=== PATIENT | female | born 1955 | race Caucasian/White ===

== ENCOUNTER 2016-10-07 08:39 | Emergency (ER) | payer MEDICARE ==
[~2016-10-07 08:39] MED LIST: CELEXA20 MG PO; KLONOPIN TAB 00.5 MG PO; LIPITOR TAB 2020 MG PO; LOPRESSOR 25 MG25 MG PO; PREDNISONE 10 M10 MG PO; TYLENOL 325MG325 MG PO
[2016-10-07 09:51] LABS: HEMOGLOBIN 15.7 gm/dl (12.3-15.3); RED BLOOD COUNT 4.97 M/UL (4.00-5.10)
[2016-10-07 10:10] LABS: BUN/CREATININE RATIO 10 (0-10)
== END 2016-10-07 11:55 | disposition home or self-care (01) ==
LOC: ER1 08:39
PROVIDERS: Emergency Medicine
DX: J44.0 Chronic obstructive pulmonary disease with (acute) lower respiratory infection (principal); J20.9 Acute bronchitis, unspecified; J44.1 Chronic obstructive pulmonary disease with (acute) exacerbation; F41.9 Anxiety disorder, unspecified; F17.200 Nicotine dependence, unspecified, uncomplicated; Z90.49 Acquired absence of other specified parts of digestive tract; Z99.81 Dependence on supplemental oxygen
CPT/HCPCS: 36415; 36600; 71010; 80053; 82803; 84484; 85025; 87040; 93005; 94640; 94664; 96374; 96375; 96376; 99285; J2060; J2930

== ENCOUNTER 2016-10-16 03:55 | Emergency (ER) | payer MEDICARE ==
[2016-10-16 04:59] LABS: HEMOGLOBIN 14.7 gm/dl (12.3-15.3); RED BLOOD COUNT 4.69 M/UL (4.00-5.10)
[2016-10-16 05:22] LABS: BUN/CREATININE RATIO 8 (0-10)
== END 2016-10-16 11:44 | disposition home or self-care (01) ==
LOC: ER1 03:55
PROVIDERS: Physician Assistant
DX: F41.0 Panic disorder [episodic paroxysmal anxiety] (principal); J44.9 Chronic obstructive pulmonary disease, unspecified; F17.210 Nicotine dependence, cigarettes, uncomplicated; Z88.0 Allergy status to penicillin; Z88.8 Allergy status to other drugs, medicaments and biological substances; Z91.041 Radiographic dye allergy status; Z90.49 Acquired absence of other specified parts of digestive tract
CPT/HCPCS: 36415; 71010; 80053; 82550; 82553; 83874; 84484; 85025; 87081; 87880; 93005; 94664; 96374; 96375; 99284; J2060; J2930

== ENCOUNTER 2016-11-22 20:33 | Emergency (ER) | payer MEDICARE | END 2016-11-23 00:08 | disposition home or self-care (01) | LOC: ER1 20:33 | DX: J44.1 Chronic obstructive pulmonary disease with (acute) exacerbation (principal); F17.200 Nicotine dependence, unspecified, uncomplicated; Z88.0 Allergy status to penicillin | CPT/HCPCS: 93005; 96372; 99284; J2060 ==

== ENCOUNTER 2016-11-26 22:40 | Emergency (ER) | payer MEDICARE | END 2016-11-27 00:30 | disposition left against medical advice (07) | LOC: ER1 22:40 | DX: Z53.21 Procedure and treatment not carried out due to patient leaving prior to being seen by health care provider (principal) | CPT/HCPCS: 93005 ==

== ENCOUNTER 2016-12-03 01:06 | Emergency (ER) | payer MEDICARE ==
[2016-12-03 03:46] LABS: HEMOGLOBIN 15.9 gm/dl (12.3-15.3); RED BLOOD COUNT 5.04 M/UL (4.00-5.10); WHITE BLOOD COUNT 9.2 K/UL (4.5-11.0)
[2016-12-03 04:07] LABS: BUN/CREATININE RATIO 21 (0-10)
== END 2016-12-03 06:50 | disposition home or self-care (01) ==
LOC: ER1 01:06
PROVIDERS: Physician Assistant
DX: J44.1 Chronic obstructive pulmonary disease with (acute) exacerbation (principal); F41.1 Generalized anxiety disorder; F17.210 Nicotine dependence, cigarettes, uncomplicated; Z88.0 Allergy status to penicillin; Z88.8 Allergy status to other drugs, medicaments and biological substances; Z90.49 Acquired absence of other specified parts of digestive tract; Z99.81 Dependence on supplemental oxygen
CPT/HCPCS: 36415; 71010; 80053; 82550; 82553; 83874; 84484; 85025; 93005; 96374; 96375; 99285; J2060; J2930

== ENCOUNTER 2016-12-03 16:12 | Inpatient (IN) | payer MEDICARE ==
[~2016-12-03] VITALS: Ht 160 cm; Wt 73.5 kg
[2016-12-03 17:16] LABS: HEMOGLOBIN 15.6 gm/dl (12.3-15.3); RED BLOOD COUNT 4.96 M/UL (4.00-5.10); WHITE BLOOD COUNT 7.4 K/UL (4.5-11.0)
[2016-12-03 18:18] LABS: BUN/CREATININE RATIO 21 (0-10)
[2016-12-04 07:32] LABS: BUN/CREATININE RATIO 25 (0-10)
[2016-12-04 08:08] LABS: HEMOGLOBIN 13.3 gm/dl (12.3-15.3); RED BLOOD COUNT 4.27 M/UL (4.00-5.10); WHITE BLOOD COUNT 11.1 K/UL (4.5-11.0)
[2016-12-08] MEDS ORDERED: SYMBICORT 16010.2 GM INH (10:11)
[2016-12-08] MEDS ORDERED: ATROVENT INH S2.5 ML INH (10:14)
[2016-12-08] MEDS ORDERED: PREDNISONE10 MG PO (10:15)
== END 2016-12-08 15:38 | disposition home or self-care (01) | DRG 189 ==
LOC: ER1 16:12 → ZEROF 20:45 → MED SURG 4 20:45
PROVIDERS: Emergency Medicine; ADMIT Internal Medicine
DX: J96.21 Acute and chronic respiratory failure with hypoxia (principal); J44.1 Chronic obstructive pulmonary disease with (acute) exacerbation; F17.210 Nicotine dependence, cigarettes, uncomplicated; F41.9 Anxiety disorder, unspecified; F32.9 Major depressive disorder, single episode, unspecified; Z91.14 Patient's other noncompliance with medication regimen; Z88.8 Allergy status to other drugs, medicaments and biological substances; Z88.0 Allergy status to penicillin; Z79.899 Other long term (current) drug therapy; G89.28 Other chronic postprocedural pain
CPT/HCPCS: 36415; 71010; 80048; 80053; 82550; 82553; 82803; 83735; 83874; 84443; 84484; 85025; 85379; 87040; 87070; 87205; 93005; 94640; 94664; 96374; 96375; 99285; J1956; J2060; J2550; J2920; J2930; J7050

== ENCOUNTER 2016-12-10 05:45 | Emergency (ER) | payer MEDICARE ==
[~2016-12-10 05:45] MED LIST changes: +ATROVENT INH S2.5 ML INH; +PREDNISONE10 MG PO; +SYMBICORT 16010.2 GM INH
[2016-12-10 06:55] LABS: RED BLOOD COUNT 5.23 M/UL (4.00-5.10); WHITE BLOOD COUNT 9.4 K/UL (4.5-11.0)
[2016-12-10 07:04] LABS: HEMOGLOBIN 16.1 gm/dl (12.3-15.3)
[2016-12-10 08:20] LABS: BUN/CREATININE RATIO 27 (0-10)
== END 2016-12-10 09:15 | disposition home or self-care (01) ==
LOC: ER1 05:45
PROVIDERS: Family Medicine
DX: J44.9 Chronic obstructive pulmonary disease, unspecified (principal); R11.0 Nausea; F17.200 Nicotine dependence, unspecified, uncomplicated; Z88.0 Allergy status to penicillin; Z88.8 Allergy status to other drugs, medicaments and biological substances
CPT/HCPCS: 36415; 71010; 80053; 82550; 82553; 82803; 83874; 84484; 85025; 93005; 96361; 96374; 96375; 99285; J2060; J2405; J2930

== ENCOUNTER 2016-12-11 17:45 | Emergency (ER) | payer MEDICARE ==
[2016-12-11 19:10] LABS: HEMOGLOBIN 13.7 gm/dl (12.3-15.3); RED BLOOD COUNT 4.38 M/UL (4.00-5.10); WHITE BLOOD COUNT 13.5 K/UL (4.5-11.0)
== END 2016-12-11 22:34 | disposition left against medical advice (07) ==
LOC: ER1 17:45
PROVIDERS: Physician Assistant
DX: J44.1 Chronic obstructive pulmonary disease with (acute) exacerbation (principal); N17.9 Acute kidney failure, unspecified; E87.6 Hypokalemia; F41.9 Anxiety disorder, unspecified; F17.210 Nicotine dependence, cigarettes, uncomplicated; Z88.0 Allergy status to penicillin; Z88.8 Allergy status to other drugs, medicaments and biological substances; Z79.899 Other long term (current) drug therapy
CPT/HCPCS: 36600; 71010; 80053; 82550; 82553; 82803; 83874; 83880; 84484; 85025; 93005; 94664; J2060; J2930; Q0177

== ENCOUNTER 2016-12-12 17:45 | Emergency (ER) | payer MEDICARE | END 2016-12-12 19:23 | disposition left against medical advice (07) | LOC: ER1 17:45 | DX: J44.0 Chronic obstructive pulmonary disease with (acute) lower respiratory infection (principal); J20.9 Acute bronchitis, unspecified; J44.1 Chronic obstructive pulmonary disease with (acute) exacerbation; Z88.0 Allergy status to penicillin; Z88.8 Allergy status to other drugs, medicaments and biological substances; Z91.041 Radiographic dye allergy status | CPT/HCPCS: 93005; 94664; J2930 ==

== ENCOUNTER 2016-12-12 23:15 | Inpatient (IN) | payer MEDICARE ==
[~2016-12-12] VITALS: Ht 160 cm; Wt 77.8 kg
[2016-12-13 00:11] LABS: HEMOGLOBIN 13.3 gm/dl (12.3-15.3); RED BLOOD COUNT 4.28 M/UL (4.00-5.10); WHITE BLOOD COUNT 10.3 K/UL (4.5-11.0)
[2016-12-13 00:25] LABS: BUN/CREATININE RATIO 20 (0-10)
[2016-12-13 04:44] LABS: HEMOGLOBIN 12.3 gm/dl (12.3-15.3); RED BLOOD COUNT 3.95 M/UL (4.00-5.10); WHITE BLOOD COUNT 9.3 K/UL (4.5-11.0)
[2016-12-13 05:25] LABS: BUN/CREATININE RATIO 22 (0-10)
== END 2016-12-14 10:53 | disposition left against medical advice (07) | DRG 191 ==
LOC: ER1 23:15 → ZEROF 12-13 01:37 → M/S 12-13 01:37
PROVIDERS: Emergency Medicine; ADMIT Internal Medicine
DX: J44.1 Chronic obstructive pulmonary disease with (acute) exacerbation (principal); F11.20 Opioid dependence, uncomplicated; Z76.5 Malingerer [conscious simulation]; F41.9 Anxiety disorder, unspecified; F32.9 Major depressive disorder, single episode, unspecified; F17.210 Nicotine dependence, cigarettes, uncomplicated; G89.29 Other chronic pain; Z79.899 Other long term (current) drug therapy; Z88.0 Allergy status to penicillin; Z88.8 Allergy status to other drugs, medicaments and biological substances; Z91.041 Radiographic dye allergy status
CPT/HCPCS: 36415; 36600; 71010; 80048; 80053; 82550; 82553; 82803; 83605; 83690; 83735; 83874; 83880; 84100; 84443; 84484; 85025; 85379; 87040; 87070; 87205; 93005; 94640; 94664; 96361; 96372; 96374; 96375; 99285; J1630; J1650; J1956; J2060; J2405; J2550; J2920; J2930; J7050; Q0177

== ENCOUNTER 2016-12-15 09:50 | Emergency (ER) | payer MEDICARE | END 2016-12-15 10:02 | disposition left against medical advice (07) | LOC: ER1 09:50 | DX: Z53.21 Procedure and treatment not carried out due to patient leaving prior to being seen by health care provider (principal) | CPT/HCPCS: 94664 ==

== ENCOUNTER 2016-12-15 17:41 | Emergency (ER) | payer MEDICARE ==
[2016-12-15 21:06] LABS: HEMOGLOBIN 14.2 gm/dl (12.3-15.3)
[2016-12-15 21:15] LABS: RED BLOOD COUNT 4.55 M/UL (4.00-5.10); WHITE BLOOD COUNT 12.3 K/UL (4.5-11.0)
[2016-12-15 21:33] LABS: BUN/CREATININE RATIO 32 (0-10)
== END 2016-12-15 23:38 | disposition home or self-care (01) ==
LOC: ER1 17:41
PROVIDERS: Family Medicine
DX: R07.9 Chest pain, unspecified (principal); R06.02 Shortness of breath; R06.2 Wheezing; Z90.49 Acquired absence of other specified parts of digestive tract; F17.200 Nicotine dependence, unspecified, uncomplicated; Z88.0 Allergy status to penicillin; Z88.8 Allergy status to other drugs, medicaments and biological substances; J44.9 Chronic obstructive pulmonary disease, unspecified; F17.210 Nicotine dependence, cigarettes, uncomplicated; Z91.041 Radiographic dye allergy status
CPT/HCPCS: 36415; 70490; 71020; 80053; 82550; 82553; 83874; 84484; 85025; 93005; 94664; 96372; 96374; 96375; 99285; J2270; J2405; J2930

== ENCOUNTER 2016-12-19 03:14 | Emergency (ER) | payer MEDICARE ==
[2016-12-19 05:52] LABS: HEMOGLOBIN 15.6 gm/dl (12.3-15.3); RED BLOOD COUNT 4.99 M/UL (4.00-5.10); WHITE BLOOD COUNT 10.2 K/UL (4.5-11.0)
[2016-12-19 06:10] LABS: BUN/CREATININE RATIO 14 (0-10)
== END 2016-12-19 06:58 | disposition left against medical advice (07) ==
LOC: ER1 03:14
PROVIDERS: Physician Assistant
DX: J44.1 Chronic obstructive pulmonary disease with (acute) exacerbation (principal); J98.01 Acute bronchospasm; Z88.0 Allergy status to penicillin; Z88.8 Allergy status to other drugs, medicaments and biological substances; Z91.14 Patient's other noncompliance with medication regimen
CPT/HCPCS: 36415; 36600; 71010; 80053; 82550; 82553; 82803; 83874; 84484; 85025; 93005; 94644; 96374; 99285; J2930; J7030

== ENCOUNTER 2017-01-08 23:55 | Emergency (ER) | payer MEDICARE ==
[2017-01-09 03:18] LABS: RED BLOOD COUNT 5.14 M/UL (4.00-5.10); WHITE BLOOD COUNT 11.1 K/UL (4.5-11.0)
[2017-01-09 04:45] LABS: BUN/CREATININE RATIO 12 (0-10)
== END 2017-01-09 08:15 | disposition home or self-care (01) ==
LOC: ER1 23:55
PROVIDERS: Emergency Medicine
DX: J44.1 Chronic obstructive pulmonary disease with (acute) exacerbation (principal); J40 Bronchitis, not specified as acute or chronic; M54.9 Dorsalgia, unspecified; F17.200 Nicotine dependence, unspecified, uncomplicated; Z88.0 Allergy status to penicillin; Z88.8 Allergy status to other drugs, medicaments and biological substances
CPT/HCPCS: 36415; 71020; 80053; 83690; 83880; 84484; 85025; 93005; 94640; 94664; 96361; 96374; 99284; 99285; J2930; J7030

== ENCOUNTER 2017-01-10 06:00 | Emergency (ER) | payer MEDICARE ==
[2017-01-10 08:14] LABS: HEMOGLOBIN 13.9 gm/dl (12.3-15.3); RED BLOOD COUNT 4.46 M/UL (4.00-5.10); WHITE BLOOD COUNT 11.4 K/UL (4.5-11.0)
[2017-01-10 08:30] LABS: BUN/CREATININE RATIO 11 (0-10)
== END 2017-01-10 08:07 | disposition left against medical advice (07) ==
LOC: ER1 06:00
PROVIDERS: Emergency Medicine
DX: J44.1 Chronic obstructive pulmonary disease with (acute) exacerbation (principal); F41.9 Anxiety disorder, unspecified; Z88.0 Allergy status to penicillin; Z88.8 Allergy status to other drugs, medicaments and biological substances
CPT/HCPCS: 36415; 71020; 73110; 80053; 83690; 84484; 85025; 85610; 85730; 93005; 94640; 94664; 96374; 99285; J2405; J2930; J7030

== ENCOUNTER 2017-04-14 17:09 | Emergency (ER) | payer MEDICARE | END 2017-04-14 19:00 | disposition left against medical advice (07) | LOC: ER1 17:09 | DX: Z53.21 Procedure and treatment not carried out due to patient leaving prior to being seen by health care provider (principal) ==